=== PATIENT | female | born 1940 | race Caucasian/White ===

== ENCOUNTER → 2017-02-05 | Outpatient (CLI) | payer MEDICARE ==
[~2017-02-05] MED LIST: ALBU8.5H3 INH; ALPR-475 PO; ALPR0.5T6 PO; ALPR1TAB6 PO; AMLO5TAB2 PO; AMOX1TAB64 PO; APIX5TAB PO; ASPI-650 PO; BUDE10.2 INH; CELE200C PO; CIPR500T87 PO; CITA20TA9 PO; CLON0.1T PO; CLON0.2T PO; DIAZ5TAB4 PO; DIGO125T PO; DIGO125T10 PO; DILT120C PO; DILT240C55 PO; DILT360C22 PO; DILT60CA PO; DOCU-186 PO; DOCU-30 PO; DULO20CA45 PO; DULO30CA2 PO; FLUT1DIS3 INH; FURO-92 PO; FURO-93 PO; GABA300C PO; GABA300C10 PO; GABA600T2 PO; ISOS10TA6 PO; ISOS20TA3 PO; ISOS30TA8 PO; LEVO750T6 PO; LISI-170 PO; LISI40TA PO; LOSA25TA5 PO; MELO7.5T5 PO; METF1000 PO; METF10002 PO; METO25TA35 PO; METO50TA4 PO; METO50TA82 PO; METR500T PO; OMEP-110 PO; OMEP20CA9 PO; OXYC-223 PO; OXYC-229 PO; OXYC-302 PO; OXYC15TA60 PO; OXYC20TA2 PO; POLY17PO5 PO; POTA10CA PO; POTA10TA90 PO; POTA20TA6 PO; POTA20TA89 PO; PRAV80TA2 PO; PRED10TA PO; PRED10TA14 PO; PRED5TAB PO; SENN1TAB7 PO; SENN8.6T5 PO; SIMV20TA3 PO; SITA100T PO; SPIR25TA3 PO; TRAM50TA2 PO; VALP250C59 PO; WARF1TAB7 PO; WARF2.5T73 PO; WARF5TAB PO; WARF5TAB7 PO
== END | disposition home or self-care (01) ==
LOC: CFH 14:52
PROVIDERS: ATTEND Specialist
DX: R13.10 Dysphagia, unspecified (principal)
CPT/HCPCS: 74220

== ENCOUNTER 2017-03-19 10:17 | Inpatient (IN) | payer MEDICARE ==
[~2017-03-19] VITALS: Ht 170.2 cm; Wt 68.2 kg
[~2017-03-19 10:17] MED LIST changes: +DILT120C9 PO; +DILT120T3 PO; +POTA10TA12 PO
[2017-03-19] MEDS ORDERED: SODIUM CHLORIDE FLUSH 10ML SYR IVF ONE (10:30)
[2017-03-19] MEDS ORDERED: ASPIRIN 81 MG TABLET CHEW ONE (10:38)
[2017-03-19] MEDS ORDERED: NITROGLYCERIN SINGLE TAB 0.4 MG SL ONE ×3 (10:38→11:09)
[2017-03-19] MEDS ORDERED: DILTIAZEM 5 MG/ML, 5ML ONE (10:45)
[2017-03-19 10:57] LABS: ASPARTATE AMINO TRANSFERASE 16 U/L (15-37); BLOOD UREA NITROGEN 17 mg/dL (7-18)
[2017-03-19] MEDS ORDERED: DILTIAZEM 5 MG/ML, 5ML IVPush ONE (11:00)
[2017-03-19] MEDS ORDERED: ASPIRIN 81 MG TABLET CHEW PO ONE (11:00)
[2017-03-19 11:02] LABS: IS PT STATUS REG ER OR PRE ER? YES
[2017-03-19] MEDS ORDERED: NITROGLYCERIN OINT 2%, 1GM TP ONE ×2 (11:10→11:30)
[2017-03-19] MEDS ORDERED: ONDANSETRON 2MG/ML, 2ML IVP PRN (13:00)
[2017-03-19] MEDS ORDERED: NITROGLYCERIN 0.4 MG BOTTLE (25 TABS) SL PRN ×2 (13:00)
[2017-03-19] MEDS ORDERED: DOCUSATE 100 MG CAPSULE PO PRN (13:00)
[2017-03-19] MEDS ORDERED: LABETALOL 5MG/ML, 20ML IV PRN (13:00)
[2017-03-19] MEDS ORDERED: HYDROcodone/APAP 5/325 TABLET PO PRN (13:00)
[2017-03-19] MEDS ORDERED: SENNOSIDES 8.6 MG TABLET PO PRN (13:00)
[2017-03-19] MEDS ORDERED: HEPARIN 5,000 UNITS/ML, 1ML SQ SCH (13:00)
[2017-03-19] MEDS ORDERED: MORP10CA7 PO (13:30)
[2017-03-19] MEDS ORDERED: hydrALAzine 20 MG/ML, 1ML IV PRN ×3 (13:30→17:30)
[2017-03-19] MEDS ORDERED: OXYC5CAP4 PO (13:31)
[2017-03-19 13:48] LABS: IS PT STATUS REG ER OR PRE ER? NO
[2017-03-19 13:55] VITALS: BP 164/99
[2017-03-19] MEDS ORDERED: SITAGLIPTIN 100MG TABLET PO SCH (14:00)
[2017-03-19 14:45] VITALS: BP 165/115
[2017-03-19] MEDS: APIXABAN 5 MG TABLET PO SCH ×2 (14:45→22:00)
[2017-03-19] MEDS: METOPROLOL TARTRATE 50 MG TABLET PO SCH ×2 (14:45→23:12)
[2017-03-19] MEDS: GABAPENTIN 300 MG CAPSULE PO SCH ×3 (14:46→23:12)
[2017-03-19] MEDS: POTASSIUM CHLORIDE 10 MEQ TABLET.ER PO SCH (14:46)
[2017-03-19] MEDS: DULOXETINE 30 MG CAPSULE.DR PO SCH (14:46)
[2017-03-19] MEDS: DIGOXIN 0.125 MG TABLET PO SCH (14:47)
[2017-03-19] MEDS: OMEPRAZOLE 20 MG CAPSULE.DR PO SCH (14:47)
[2017-03-19] MEDS: LISINOPRIL 20 MG TABLET PO SCH (14:47)
[2017-03-19] MEDS: SPIRONOLACTONE 25 MG TABLET PO SCH (14:47)
[2017-03-19] MEDS: MORPHINE SULFATE 4 MG/ML, 1ML IVPush PRN ×3 (14:59→23:12)
[2017-03-19] MEDS: ISOSORBIDE MONONITRATE ER 30 MG TABLET PO SCH (15:48)
[2017-03-19] MEDS ORDERED: GABAPENTIN 300 MG CAPSULE PO SCH (16:00)
[2017-03-19] MEDS: metFORMIN 500 MG TABLET PO SCH (17:44)
[2017-03-19] MEDS ORDERED: POTASSIUM CHLORIDE 20 MEQ TAB.ER.PRT PO ONE (18:00)
[2017-03-19 18:16] LABS: IS PT STATUS REG ER OR PRE ER? NO
[2017-03-19 19:41] VITALS: BP 115/78
[2017-03-19] MEDS ORDERED: POTASSIUM CHLORIDE 20 MEQ TAB.ER.PRT ONE (23:02)
[2017-03-19] MEDS: INSULIN REGULAR 100 UNITS/ML, 3ML VIAL SQ-INSULIN SCH (23:06)
[2017-03-19] MEDS: MORPHINE SULFATE 10 MG PO SCH (23:21)
[2017-03-19] MEDS: OXYcodone IR 5MG TABLET PO SCH (23:21)
[2017-03-20 02:30] VITALS: BP 149/95
[2017-03-20 05:42] LABS: BLOOD UREA NITROGEN 18 mg/dL (7-18)
[2017-03-20] MEDS ORDERED: ASPIRIN 81 MG TABLET EC PO SCH (06:00)
[2017-03-20] MEDS: INSULIN REGULAR 100 UNITS/ML, 3ML VIAL SQ-INSULIN SCH ×2 (07:00→12:37)
[2017-03-20] MEDS ORDERED: DILT120T3 PO (07:03)
[2017-03-20] MEDS ORDERED: OMEPRAZOLE 20 MG CAPSULE.DR PO SCH (07:30)
[2017-03-20 08:30] VITALS: BP 145/67
[2017-03-20] MEDS: MORPHINE SULFATE 10 MG PO SCH (08:40)
[2017-03-20] MEDS ORDERED: REGADENOSON 0.4 MG/5 ML SYRINGE ONE (08:41)
[2017-03-20] MEDS ORDERED: LISINOPRIL 20 MG TABLET PO SCH (09:00)
[2017-03-20] MEDS ORDERED: DILTIAZEM 120 MG TABLET PO SCH (09:00)
[2017-03-20] MEDS ORDERED: DULOXETINE 30 MG CAPSULE.DR PO SCH (09:00)
[2017-03-20] MEDS ORDERED: SITAGLIPTIN 100MG TABLET PO SCH (09:00)
[2017-03-20] MEDS ORDERED: DIGOXIN 0.125 MG TABLET PO SCH (09:00)
[2017-03-20] MEDS ORDERED: POTASSIUM CHLORIDE 10 MEQ TABLET.ER PO SCH (09:00)
[2017-03-20] MEDS ORDERED: SPIRONOLACTONE 25 MG TABLET PO SCH (09:00)
[2017-03-20] MEDS ORDERED: SITAGLIPTIN 50MG TABLET PO SCH (09:00)
[2017-03-20] MEDS ORDERED: FLUTICASONE/VILANTEROL 100-25MCG/INH INH SCH (09:00)
[2017-03-20] MEDS: OXYcodone IR 5MG TABLET PO SCH (10:19)
[2017-03-20] MEDS: POTASSIUM CHLORIDE 10 MEQ TABLET.ER PO SCH (10:19)
[2017-03-20] MEDS: SPIRONOLACTONE 25 MG TABLET PO SCH (10:20)
[2017-03-20] MEDS: METOPROLOL TARTRATE 50 MG TABLET PO SCH (10:20)
[2017-03-20] MEDS: APIXABAN 5 MG TABLET PO SCH (10:20)
[2017-03-20] MEDS: LISINOPRIL 20 MG TABLET PO SCH (10:20)
[2017-03-20] MEDS: DIGOXIN 0.125 MG TABLET PO SCH (10:20)
[2017-03-20] MEDS: DULOXETINE 30 MG CAPSULE.DR PO SCH (10:22)
[2017-03-20] MEDS: metFORMIN 500 MG TABLET PO SCH (10:22)
[2017-03-20] MEDS: GABAPENTIN 300 MG CAPSULE PO SCH (10:23)
[2017-03-20] MEDS: OMEPRAZOLE 20 MG CAPSULE.DR PO SCH (10:23)
[2017-03-20] MEDS: ISOSORBIDE MONONITRATE ER 30 MG TABLET PO SCH (10:23)
[2017-03-20 14:40] VITALS: BP 144/79
== END 2017-03-20 17:09 | disposition home or self-care (01) | DRG 292 ==
LOC: ED 11:11 → EDIP 11:12 → ED 11:33 → 5SO 13:25
PROVIDERS: ADMIT Family Medicine; ATTEND Family Medicine
DX: I11.0 Hypertensive heart disease with heart failure (principal); F19.20 Other psychoactive substance dependence, uncomplicated; I48.92 Unspecified atrial flutter; J96.10 Chronic respiratory failure, unspecified whether with hypoxia or hypercapnia; R07.89 Other chest pain; I25.110 Atherosclerotic heart disease of native coronary artery with unstable angina pectoris; D63.8 Anemia in other chronic diseases classified elsewhere; E78.00 Pure hypercholesterolemia, unspecified; E78.5 Hyperlipidemia, unspecified; F03.90 Unspecified dementia, unspecified severity, without behavioral disturbance, psychotic disturbance, mood disturbance, and anxiety; F32.9 Major depressive disorder, single episode, unspecified; I48.2 Chronic atrial fibrillation; F41.9 Anxiety disorder, unspecified; G89.29 Other chronic pain; J45.909 Unspecified asthma, uncomplicated; M54.9 Dorsalgia, unspecified; I50.9 Heart failure, unspecified; Z79.01 Long term (current) use of anticoagulants; Z79.4 Long term (current) use of insulin; Z79.82 Long term (current) use of aspirin; Z79.84 Long term (current) use of oral hypoglycemic drugs; Z86.73 Personal history of transient ischemic attack (TIA), and cerebral infarction without residual deficits; Z91.14 Patient's other noncompliance with medication regimen; Z95.0 Presence of cardiac pacemaker; R60.9 Edema, unspecified; E11.65 Type 2 diabetes mellitus with hyperglycemia; F10.10 Alcohol abuse, uncomplicated
CPT/HCPCS: 36415; 71010; 78452; 80048; 80053; 80162; 82962; 83735; 83880; 84100; 84484; 85025; 85610; 93005; 93017; 96374; J1815; J2785; A9502; C9898; J7512

== ENCOUNTER → 2017-04-13 | Outpatient (CLI) | payer MEDICARE ==
[~2017-04-13] MED LIST changes: +MORP10CA7 PO; +OXYC5CAP4 PO
== END | disposition home or self-care (01) ==
LOC: CVU 14:31
PROVIDERS: ATTEND Physician Assistant Medical
DX: I87.2 Venous insufficiency (chronic) (peripheral) (principal)
CPT/HCPCS: 93970

== ENCOUNTER 2017-06-01 20:55 | Emergency (ER) | payer MEDICARE ==
[~2017-06-01] VITALS: Ht 170.2 cm; Wt 69.0 kg
[2017-06-01 22:14] LABS: ASPARTATE AMINO TRANSFERASE 13 U/L (15-37); BLOOD UREA NITROGEN 38 mg/dL (7-18); IS PT STATUS REG ER OR PRE ER? YES
[2017-06-01] MEDS ORDERED: OXYcodone/APAP 5/325MG TABLET ONE (23:58)
[2017-06-02] MEDS ORDERED: OXYcodone/APAP 5/325MG TABLET PO ONE
[2017-06-02 01:35] VITALS: BP 126/65
== END 2017-06-02 01:37 | disposition home or self-care (01) ==
LOC: ED 23:56
DX: M70.72 Other bursitis of hip, left hip (principal); M79.662 Pain in left lower leg; R60.0 Localized edema; I11.0 Hypertensive heart disease with heart failure; I50.9 Heart failure, unspecified; E78.00 Pure hypercholesterolemia, unspecified; E78.5 Hyperlipidemia, unspecified; K21.9 Gastro-esophageal reflux disease without esophagitis; E11.9 Type 2 diabetes mellitus without complications; I25.10 Atherosclerotic heart disease of native coronary artery without angina pectoris; J45.909 Unspecified asthma, uncomplicated; I48.91 Unspecified atrial fibrillation; M19.90 Unspecified osteoarthritis, unspecified site
CPT/HCPCS: 36415; 71010; 80053; 80162; 81001; 84484; 85025; 87086; 93005; 93970; 99285

== ENCOUNTER 2017-06-20 11:28 | Inpatient (IN) | payer MEDICARE ==
[~2017-06-20] VITALS: Ht 172.7 cm; Wt 65.9 kg
[2017-06-20] MEDS ORDERED: DILTIAZEM 125 MG in DEXTROSE 5% 100 ML IV SCH (11:48)
[2017-06-20] MEDS ORDERED: ONDANSETRON 2MG/ML, 2ML ONE (12:00)
[2017-06-20] MEDS ORDERED: PLEASE ENTER HEIGHT AND WEIGHT MC SCH (12:00)
[2017-06-20] MEDS ORDERED: ONDANSETRON 2MG/ML, 2ML IVPush ONE (12:00)
[2017-06-20] MEDS ORDERED: SODIUM CHLORIDE FLUSH 10ML SYR IVF ONE (12:00)
[2017-06-20] MEDS ORDERED: DILTIAZEM 5 MG/ML, 5ML IV ONE (12:00)
[2017-06-20] MEDS ORDERED: MORPHINE SULFATE 4 MG/ML, 1ML ONE ×2 (12:00→13:06)
[2017-06-20] MEDS ORDERED: DILTIAZEM 5 MG/ML, 5ML ONE (12:01)
[2017-06-20 12:11] LABS: HEMATOCRIT 36.8 % (34.6-47.8); HEMOGLOBIN 12.2 g/dL (11.7-16.4); WHITE BLOOD COUNT 4.1 x10^3/uL (3.4-10)
[2017-06-20] MEDS: MORPHINE SULFATE 4 MG/ML, 1ML IVPush PRN ×4 (12:11→13:27)
[2017-06-20 12:20] LABS: ASPARTATE AMINO TRANSFERASE 23 U/L (15-37); BLOOD UREA NITROGEN 40 mg/dL (7-18)
[2017-06-20] MEDS ORDERED: SODIUM CHLORIDE FLUSH 10ML SYR IVF PRN (14:00)
[2017-06-20] MEDS ORDERED: OXYcodone/APAP 7.5/325MG TABLET ONE (14:23)
[2017-06-20] MEDS ORDERED: ONDANSETRON 2MG/ML, 2ML IVPush PRN (14:30)
[2017-06-20] MEDS ORDERED: ONDANSETRON ODT 4 MG PO PRN (14:30)
[2017-06-20] MEDS ORDERED: ACETAMINOPHEN 325 MG TABLET PO PRN (14:30)
[2017-06-20] MEDS ORDERED: LABETALOL 5MG/ML, 20ML IVPush PRN (14:30)
[2017-06-20] MEDS ORDERED: OXYcodone/APAP 7.5/325MG TABLET PO ONE (14:30)
[2017-06-20] MEDS ORDERED: SENNOSIDES 8.6 MG TABLET PO PRN (14:30)
[2017-06-20 15:37] VITALS: BP 130/88
[2017-06-20] MEDS ORDERED: DOCUSATE 100 MG CAPSULE PO PRN (17:30)
[2017-06-20] MEDS ORDERED: DILTIAZEM 125 MG in SODIUM CHLORIDE 0.9% 100 ML IV PRN (17:30)
[2017-06-20] MEDS: GABAPENTIN 300 MG CAPSULE PO SCH ×2 (17:37→20:49)
[2017-06-20 19:38] VITALS: BP 110/68
[2017-06-20] MEDS: metFORMIN 500 MG TABLET PO SCH (20:49)
[2017-06-20] MEDS: APIXABAN 5 MG TABLET PO SCH (20:49)
[2017-06-21 03:31] VITALS: BP 148/87
[2017-06-21 05:12] LABS: HEMATOCRIT 38.8 % (34.6-47.8); HEMOGLOBIN 12.6 g/dL (11.7-16.4)
[2017-06-21 05:37] LABS: BLOOD UREA NITROGEN 29 mg/dL (7-18)
[2017-06-21 08:24] VITALS: BP 130/79
[2017-06-21] MEDS: SPIRONOLACTONE 25 MG TABLET PO SCH (08:29)
[2017-06-21] MEDS: LISINOPRIL 20 MG TABLET PO SCH (08:29)
[2017-06-21] MEDS: DIGOXIN 0.125 MG TABLET PO SCH (08:29)
[2017-06-21] MEDS: GABAPENTIN 300 MG CAPSULE PO SCH ×3 (08:29→21:39)
[2017-06-21] MEDS: APIXABAN 5 MG TABLET PO SCH ×2 (08:29→21:38)
[2017-06-21] MEDS: SITAGLIPTIN 50MG TABLET PO SCH (08:29)
[2017-06-21] MEDS: metFORMIN 500 MG TABLET PO SCH ×2 (08:29→21:39)
[2017-06-21] MEDS: OMEPRAZOLE 20 MG CAPSULE.DR PO SCH (08:30)
[2017-06-21] MEDS: ISOSORBIDE MONONITRATE ER 30 MG TABLET PO SCH (08:30)
[2017-06-21] MEDS: DILTIAZEM 120 MG TABLET PO SCH ×2 (17:18→21:38)
[2017-06-21 17:46] LABS: PATH.CAST-FLAG NOT PRESENT; SPERM-FLAG NOT PRESENT; SRC-FLAG NOT PRESENT; XTAL-FLAG NOT PRESENT; YLC-FLAG NOT PRESENT
[2017-06-21 21:05] VITALS: BP 113/71
[2017-06-22 04:05] VITALS: BP 120/74
[2017-06-22 08:29] VITALS: BP 120/74
[2017-06-22] MEDS: ISOSORBIDE MONONITRATE ER 30 MG TABLET PO SCH (08:37)
[2017-06-22] MEDS: OMEPRAZOLE 20 MG CAPSULE.DR PO SCH (08:37)
[2017-06-22] MEDS: SITAGLIPTIN 50MG TABLET PO SCH (08:37)
[2017-06-22] MEDS: DILTIAZEM 120 MG TABLET PO SCH (08:37)
[2017-06-22] MEDS: LISINOPRIL 20 MG TABLET PO SCH (08:37)
[2017-06-22] MEDS: GABAPENTIN 300 MG CAPSULE PO SCH (08:38)
[2017-06-22] MEDS: APIXABAN 5 MG TABLET PO SCH (08:38)
[2017-06-22] MEDS: metFORMIN 500 MG TABLET PO SCH (08:38)
[2017-06-22] MEDS: SPIRONOLACTONE 25 MG TABLET PO SCH (08:38)
[2017-06-22] MEDS: DIGOXIN 0.125 MG TABLET PO SCH (08:38)
[2017-06-22 12:49] VITALS: BP 103/65
== END 2017-06-22 13:31 | disposition home or self-care (01) | DRG 158 ==
LOC: ED 12:21 → EDIP 13:38 → 5SO 15:22 → DCLOUNGE 06-22 13:17
PROVIDERS: ADMIT Internal Medicine; ATTEND Internal Medicine
DX: M26.69 Other specified disorders of temporomandibular joint (principal); N17.9 Acute kidney failure, unspecified; D68.69 Other thrombophilia; I13.0 Hypertensive heart and chronic kidney disease with heart failure and stage 1 through stage 4 chronic kidney disease, or unspecified chronic kidney disease; I25.110 Atherosclerotic heart disease of native coronary artery with unstable angina pectoris; I38 Endocarditis, valve unspecified; I48.2 Chronic atrial fibrillation; E78.5 Hyperlipidemia, unspecified; E11.22 Type 2 diabetes mellitus with diabetic chronic kidney disease; E78.00 Pure hypercholesterolemia, unspecified; G89.29 Other chronic pain; I25.2 Old myocardial infarction; I50.9 Heart failure, unspecified; J45.909 Unspecified asthma, uncomplicated; K08.89 Other specified disorders of teeth and supporting structures; K21.9 Gastro-esophageal reflux disease without esophagitis; M06.9 Rheumatoid arthritis, unspecified; N18.9 Chronic kidney disease, unspecified; F41.9 Anxiety disorder, unspecified; F32.9 Major depressive disorder, single episode, unspecified; K03.81 Cracked tooth; Z79.01 Long term (current) use of anticoagulants; Z86.73 Personal history of transient ischemic attack (TIA), and cerebral infarction without residual deficits; Z95.0 Presence of cardiac pacemaker
CPT/HCPCS: 36415; 70100; 71010; 80048; 80053; 81001; 83735; 83880; 84100; 84439; 84443; 84484; 85025; 85610; 85730; 93005; 93306; 96365; 96375; 96376; J2405; J7512

== ENCOUNTER 2017-06-28 06:47 | Observation (INO) | payer MEDICARE ==
[~2017-06-28] VITALS: Ht 172.7 cm; Wt 63.9 kg
[2017-06-28] MEDS ORDERED: SODIUM CHLORIDE 0.9% 1,000 ML IV SCH (07:11)
[2017-06-28] MEDS ORDERED: FURO40TA6 PO (07:38)
[2017-06-28] MEDS ORDERED: DULO30CA2 PO (07:38)
[2017-06-28] MEDS ORDERED: APIX5TAB PO (07:38)
[2017-06-28] MEDS ORDERED: OMEP-110 PO (07:38)
[2017-06-28] MEDS ORDERED: ISOS30TA8 PO (07:38)
[2017-06-28] MEDS ORDERED: METO50TA82 PO (07:38)
[2017-06-28] MEDS ORDERED: DILT120C11 PO (07:38)
[2017-06-28] MEDS ORDERED: PRAV80TA2 PO (07:43)
[2017-06-28 07:48] VITALS: BP 101/76
[2017-06-28 07:54] LABS: HEMATOCRIT 37.1 % (34.6-47.8); HEMOGLOBIN 12.2 g/dL (11.7-16.4); WHITE BLOOD COUNT 6.9 x10^3/uL (3.4-10)
[2017-06-28] MEDS ORDERED: MIDAZOLAM 1 MG/ML, 5ML ONE (08:39)
[2017-06-28] MEDS ORDERED: LIDOCAINE 2%, 20ML ONE (08:40)
[2017-06-28] MEDS ORDERED: FENTANYL PF 100 MCG/2ML ONE (08:40)
[2017-06-28 08:48] LABS: ASPARTATE AMINO TRANSFERASE 18 U/L (15-37); BLOOD UREA NITROGEN 39 mg/dL (7-18)
[2017-06-28 09:30] VITALS: BP 110/74
[2017-06-28] MEDS ORDERED: ZOLPIDEM 5MG TABLET PO PRN (09:30)
[2017-06-28] MEDS ORDERED: DOCUSATE 100 MG CAPSULE PO PRN (13:00)
[2017-06-28 13:41] VITALS: BP 99/67
[2017-06-28] MEDS: GABAPENTIN 300 MG CAPSULE PO SCH ×2 (16:00→22:36)
[2017-06-28] MEDS: metFORMIN 500 MG TABLET PO SCH (16:07)
[2017-06-28] MEDS: METOPROLOL TARTRATE 50 MG TABLET PO SCH (18:31)
[2017-06-28 19:40] VITALS: BP 133/86
[2017-06-28] MEDS ORDERED: PRAVASTATIN 40 MG TABLET PO SCH (21:00)
[2017-06-28] MEDS: FUROSEMIDE 40 MG TABLET PO SCH (22:36)
[2017-06-28] MEDS: APIXABAN 5 MG TABLET PO SCH (22:36)
[2017-06-28] MEDS: SPIRONOLACTONE 25 MG TABLET PO SCH (22:36)
[2017-06-28] MEDS: OXYcodone IR 5MG TABLET PO PRN (22:37)
[2017-06-29 00:45] VITALS: BP 111/80
[2017-06-29 06:43] VITALS: BP 122/89
[2017-06-29] MEDS: METOPROLOL TARTRATE 50 MG TABLET PO SCH (06:43)
[2017-06-29] MEDS ORDERED: OMEPRAZOLE 20 MG CAPSULE.DR PO SCH (07:30)
[2017-06-29 07:35] VITALS: BP 112/83
[2017-06-29] MEDS: GABAPENTIN 300 MG CAPSULE PO SCH (07:36)
[2017-06-29] MEDS: SPIRONOLACTONE 25 MG TABLET PO SCH (07:36)
[2017-06-29] MEDS: FUROSEMIDE 40 MG TABLET PO SCH (07:36)
[2017-06-29] MEDS: APIXABAN 5 MG TABLET PO SCH (07:37)
[2017-06-29] MEDS: OXYcodone IR 5MG TABLET PO PRN (07:41)
[2017-06-29] MEDS: metFORMIN 500 MG TABLET PO SCH (07:48)
[2017-06-29] MEDS ORDERED: DULOXETINE 30 MG CAPSULE.DR PO SCH (09:00)
[2017-06-29] MEDS ORDERED: LISINOPRIL 20 MG TABLET PO SCH (09:00)
[2017-06-29] MEDS ORDERED: SITAGLIPTIN 50MG TABLET PO SCH (09:00)
[2017-06-29] MEDS ORDERED: ISOSORBIDE MONONITRATE ER 30 MG TABLET PO SCH (09:00)
[2017-06-29] MEDS ORDERED: POTASSIUM CHLORIDE 10 MEQ TABLET.ER PO SCH (09:00)
[2017-06-29 10:37] VITALS: BP 108/71
[2017-06-29 15:04] VITALS: BP 104/71
== END 2017-06-29 17:38 | disposition home or self-care (01) ==
LOC: CACL 06:47 → ORIP 09:20 → 5SO 12:07
PROVIDERS: ADMIT Internal Medicine Cardiovascular Disease; ATTEND Internal Medicine Cardiovascular Disease
DX: I48.91 Unspecified atrial fibrillation (principal); I63.9 Cerebral infarction, unspecified; I34.0 Nonrheumatic mitral (valve) insufficiency; I44.2 Atrioventricular block, complete; I87.2 Venous insufficiency (chronic) (peripheral); I10 Essential (primary) hypertension; E11.9 Type 2 diabetes mellitus without complications; R06.02 Shortness of breath; J96.10 Chronic respiratory failure, unspecified whether with hypoxia or hypercapnia; Z86.73 Personal history of transient ischemic attack (TIA), and cerebral infarction without residual deficits
CPT/HCPCS: 36415; 72190; 73552; 80053; 85025; 85610; 85730; 93005; 93650; 99156; C1894; C2630; G0378; J2250; J3010; J3490; J7512

== ENCOUNTER 2017-07-31 03:48 | Inpatient (IN) | payer MEDICARE ==
[~2017-07-31] VITALS: Ht 175.3 cm; Wt 68.7 kg
[~2017-07-31 03:48] MED LIST changes: -ALBU8.5H3 INH; +ALBU8.5H8 INH; +DILT120C11 PO; +DOCU-131 PO; -DOCU-30 PO; +FURO40TA6 PO; -OXYC-223 PO; -OXYC-229 PO; +OXYC-306 PO; +OXYC-307 PO; +OXYC5CAP2 PO; -OXYC5CAP4 PO; +POTA10TA6 PO; -POTA10TA90 PO
[2017-07-31] MEDS ORDERED: SODIUM CHLORIDE FLUSH 10ML SYR IVF ONE (04:00)
[2017-07-31] MEDS ORDERED: ONDANSETRON 2MG/ML, 2ML IVPush ONE (04:00)
[2017-07-31] MEDS ORDERED: SODIUM CHLORIDE 0.9% 1,000ML IVBOLUS ONE (04:00)
[2017-07-31 04:30] LABS: HEMATOCRIT 34.9 % (34.6-47.8); HEMOGLOBIN 11.5 g/dL (11.7-16.4); WHITE BLOOD COUNT 7.5 x10^3/uL (3.4-10)
[2017-07-31 04:31] LABS: ASPARTATE AMINO TRANSFERASE 69 U/L (15-37); BLOOD UREA NITROGEN 25 mg/dL (7-18)
[2017-07-31 04:36] LABS: IS PT STATUS REG ER OR PRE ER? YES
[2017-07-31] MEDS ORDERED: ONDANSETRON 2MG/ML, 2ML IVPush PRN ×2 (05:00→08:00)
[2017-07-31] MEDS ORDERED: DIGO125T PO (05:09)
[2017-07-31] MEDS ORDERED: WARF2.5T73 PO (05:09)
[2017-07-31] MEDS ORDERED: DILT60CA PO (05:09)
[2017-07-31] MEDS ORDERED: ONDANSETRON 2MG/ML, 2ML ONE (06:45)
[2017-07-31] MEDS ORDERED: DEXTROSE 4 GM TAB.CHEW PO PRN (08:00)
[2017-07-31] MEDS ORDERED: GLUCAGON 1 MG IM PRN (08:00)
[2017-07-31] MEDS ORDERED: DEXTROSE 50%, 50ML SYRINGE IVPush PRN (08:00)
[2017-07-31] MEDS ORDERED: NITROGLYCERIN 0.4 MG/SPRAY SL PRN (08:00)
[2017-07-31] MEDS ORDERED: LABETALOL 5MG/ML, 20ML IVPush PRN (08:00)
[2017-07-31] MEDS ORDERED: PROMETHAZINE 25 MG/ML, 1ML IM PRN (08:00)
[2017-07-31] MEDS ORDERED: NITROGLYCERIN 0.4 MG BOTTLE (25 TABS) SL PRN (08:00)
[2017-07-31] MEDS ORDERED: ACETAMINOPHEN 325 MG TABLET PO PRN (08:00)
[2017-07-31] MEDS ORDERED: PHARMACY INSTRUCTION MC PRN (08:30)
[2017-07-31] MEDS: SODIUM CHLORIDE FLUSH 10ML SYR IVF SCH ×2 (09:00→21:49)
[2017-07-31] MEDS ORDERED: WARFARIN 5 MG TABLET PO-COUM SCH ×2 (09:00→18:00)
[2017-07-31] MEDS: SPIRONOLACTONE 25 MG TABLET PO SCH ×2 (09:00→14:34)
[2017-07-31] MEDS: GABAPENTIN 300 MG CAPSULE PO SCH ×3 (09:00→21:51)
[2017-07-31] MEDS: metroNIDAZOLE 500 MG TABLET PO SCH ×3 (09:00→22:18)
[2017-07-31] MEDS: FUROSEMIDE 40 MG TABLET PO SCH ×2 (09:00→14:34)
[2017-07-31] MEDS ORDERED: MORPHINE SULFATE 4 MG/ML, 1ML ONE (10:09)
[2017-07-31] MEDS ORDERED: ENOXAPARIN 40 MG/0.4 ML ONE (10:10)
[2017-07-31] MEDS: ENOXAPARIN 40 MG/0.4 ML SQ SCH (10:19)
[2017-07-31] MEDS: MORPHINE SULFATE 4 MG/ML, 1ML IVPush PRN ×3 (10:27→22:18)
[2017-07-31] MEDS: DILTIAZEM 60 MG CAP.ER.12H PO SCH (14:33)
[2017-07-31] MEDS: SITAGLIPTIN 50MG TABLET PO SCH (14:33)
[2017-07-31] MEDS: POTASSIUM CHLORIDE 10 MEQ TABLET.ER PO SCH (14:34)
[2017-07-31] MEDS: DIGOXIN 0.125 MG TABLET PO SCH (14:35)
[2017-07-31] MEDS: INSULIN ASPART 100 UNITS/ML, PEN SQ-INSULIN SCH ×3 (15:38→21:55)
[2017-08-01 00:07] VITALS: BP 108/76
[2017-08-01] MEDS ORDERED: ACETAMINOPHEN 325 MG TABLET PO PRN (00:30)
[2017-08-01] MEDS ORDERED: LABETALOL 5MG/ML, 20ML IVPush PRN (00:30)
[2017-08-01] MEDS ORDERED: ONDANSETRON 2MG/ML, 2ML IVPush PRN (00:30)
[2017-08-01] MEDS ORDERED: NITROGLYCERIN 0.4 MG BOTTLE (25 TABS) SL PRN (00:30)
[2017-08-01] MEDS ORDERED: DEXTROSE 4 GM TAB.CHEW PO PRN (00:30)
[2017-08-01] MEDS ORDERED: DEXTROSE 50%, 50ML SYRINGE IVPush PRN (00:30)
[2017-08-01] MEDS ORDERED: NITROGLYCERIN 0.4 MG/SPRAY SL PRN (00:30)
[2017-08-01] MEDS ORDERED: PROMETHAZINE 25 MG/ML, 1ML IM PRN (00:30)
[2017-08-01] MEDS ORDERED: GLUCAGON 1 MG IM PRN (00:30)
[2017-08-01 05:33] LABS: HEMATOCRIT 33.2 % (34.6-47.8); HEMOGLOBIN 11.1 g/dL (11.7-16.4); WHITE BLOOD COUNT 4.8 x10^3/uL (3.4-10)
[2017-08-01] MEDS: FUROSEMIDE 40 MG TABLET PO SCH (06:24)
[2017-08-01 06:25] LABS: BLOOD UREA NITROGEN 36 mg/dL (7-18)
[2017-08-01] MEDS: SPIRONOLACTONE 25 MG TABLET PO SCH ×2 (06:26→21:41)
[2017-08-01 06:43] LABS: ASPARTATE AMINO TRANSFERASE 32 U/L (15-37)
[2017-08-01] MEDS: INSULIN ASPART 100 UNITS/ML, PEN SQ-INSULIN SCH ×4 (07:00→21:42)
[2017-08-01 07:45] VITALS: BP 107/71
[2017-08-01] MEDS: ENOXAPARIN 40 MG/0.4 ML SQ SCH (08:30)
[2017-08-01] MEDS: POTASSIUM CHLORIDE 10 MEQ TABLET.ER PO SCH (09:00)
[2017-08-01] MEDS: DILTIAZEM 60 MG CAP.ER.12H PO SCH (09:32)
[2017-08-01] MEDS: SITAGLIPTIN 50MG TABLET PO SCH (09:33)
[2017-08-01] MEDS: GABAPENTIN 300 MG CAPSULE PO SCH ×3 (09:34→21:42)
[2017-08-01] MEDS: metroNIDAZOLE 500 MG TABLET PO SCH ×3 (09:35→21:41)
[2017-08-01] MEDS: DIGOXIN 0.125 MG TABLET PO SCH (09:35)
[2017-08-01] MEDS: SODIUM CHLORIDE FLUSH 10ML SYR IVF SCH ×2 (09:40→21:41)
[2017-08-01] MEDS: FUROSEMIDE 40 MG/4 ML IV SCH (15:57)
[2017-08-01 16:00] VITALS: BP 104/75
[2017-08-01] MEDS ORDERED: HYDROcodone/APAP 5/325 TABLET PO ONE (17:30)
[2017-08-01 20:30] VITALS: BP 109/74
[2017-08-02 00:49] VITALS: BP 111/76
[2017-08-02] MEDS ORDERED: HYDROcodone/APAP 5/325 TABLET PO ONE (01:30)
[2017-08-02 05:37] LABS: HEMATOCRIT 31.3 % (34.6-47.8); HEMOGLOBIN 10.4 g/dL (11.7-16.4); WHITE BLOOD COUNT 4.9 x10^3/uL (3.4-10)
[2017-08-02 06:01] LABS: BLOOD UREA NITROGEN 39 mg/dL (7-18)
[2017-08-02] MEDS: INSULIN ASPART 100 UNITS/ML, PEN SQ-INSULIN SCH ×4 (07:00→21:00)
[2017-08-02 08:57] VITALS: BP 120/83
[2017-08-02] MEDS: ENOXAPARIN 40 MG/0.4 ML SQ SCH (09:17)
[2017-08-02] MEDS: FUROSEMIDE 40 MG/4 ML IV SCH (09:17)
[2017-08-02] MEDS: GABAPENTIN 300 MG CAPSULE PO SCH ×3 (09:18→21:38)
[2017-08-02] MEDS: DILTIAZEM 60 MG CAP.ER.12H PO SCH (09:18)
[2017-08-02] MEDS: SODIUM CHLORIDE FLUSH 10ML SYR IVF SCH ×2 (09:19→21:38)
[2017-08-02] MEDS: SPIRONOLACTONE 25 MG TABLET PO SCH ×2 (09:19→21:38)
[2017-08-02] MEDS: DIGOXIN 0.125 MG TABLET PO SCH (09:19)
[2017-08-02] MEDS: metroNIDAZOLE 500 MG TABLET PO SCH ×3 (09:19→21:38)
[2017-08-02] MEDS: POTASSIUM CHLORIDE 10 MEQ TABLET.ER PO SCH (09:20)
[2017-08-02] MEDS: SITAGLIPTIN 50MG TABLET PO SCH (09:20)
[2017-08-02 13:03] VITALS: BP 113/78
[2017-08-02] MEDS: FUROSEMIDE 40 MG TABLET PO SCH (16:14)
[2017-08-02 20:00] VITALS: BP 135/86
[2017-08-03 02:08] VITALS: BP 141/86
[2017-08-03 06:03] LABS: HEMATOCRIT 32.1 % (34.6-47.8); HEMOGLOBIN 10.6 g/dL (11.7-16.4); WHITE BLOOD COUNT 5.8 x10^3/uL (3.4-10)
[2017-08-03 06:24] LABS: BLOOD UREA NITROGEN 31 mg/dL (7-18)
[2017-08-03] MEDS: INSULIN ASPART 100 UNITS/ML, PEN SQ-INSULIN SCH (07:00)
[2017-08-03 08:40] VITALS: BP 118/69
[2017-08-03] MEDS: GABAPENTIN 300 MG CAPSULE PO SCH (08:59)
[2017-08-03] MEDS: metroNIDAZOLE 500 MG TABLET PO SCH (08:59)
[2017-08-03] MEDS: DIGOXIN 0.125 MG TABLET PO SCH (08:59)
[2017-08-03] MEDS: DILTIAZEM 60 MG CAP.ER.12H PO SCH (08:59)
[2017-08-03] MEDS: SPIRONOLACTONE 25 MG TABLET PO SCH (08:59)
[2017-08-03] MEDS ORDERED: SITAGLIPTIN 50MG TABLET PO SCH (09:00)
[2017-08-03] MEDS: SODIUM CHLORIDE FLUSH 10ML SYR IVF SCH (09:00)
[2017-08-03] MEDS: POTASSIUM CHLORIDE 10 MEQ TABLET.ER PO SCH (09:00)
[2017-08-03] MEDS: ENOXAPARIN 40 MG/0.4 ML SQ SCH (09:00)
[2017-08-03] MEDS: FUROSEMIDE 40 MG TABLET PO SCH (09:00)
[2017-08-03] MEDS ORDERED: METR500T PO (10:45)
== END 2017-08-03 14:05 | disposition home health service (06) | DRG 291 ==
LOC: ED 04:59 → EDIP 05:10 → 5SO 12:50
PROVIDERS: ADMIT Internal Medicine; ATTEND Internal Medicine
DX: I13.0 Hypertensive heart and chronic kidney disease with heart failure and stage 1 through stage 4 chronic kidney disease, or unspecified chronic kidney disease (principal); I50.33 Acute on chronic diastolic (congestive) heart failure; A04.7 Enterocolitis due to Clostridium difficile; D68.69 Other thrombophilia; E11.22 Type 2 diabetes mellitus with diabetic chronic kidney disease; I27.2 Other secondary pulmonary hypertension; F11.20 Opioid dependence, uncomplicated; N18.3 Chronic kidney disease, stage 3 (moderate); F01.50 Vascular dementia, unspecified severity, without behavioral disturbance, psychotic disturbance, mood disturbance, and anxiety; I48.2 Chronic atrial fibrillation; I71.2 Thoracic aortic aneurysm, without rupture; F32.9 Major depressive disorder, single episode, unspecified; D63.8 Anemia in other chronic diseases classified elsewhere; E78.00 Pure hypercholesterolemia, unspecified; E78.5 Hyperlipidemia, unspecified; F41.9 Anxiety disorder, unspecified; G89.29 Other chronic pain; I08.1 Rheumatic disorders of both mitral and tricuspid valves; I25.119 Atherosclerotic heart disease of native coronary artery with unspecified angina pectoris; I25.2 Old myocardial infarction; I45.9 Conduction disorder, unspecified; J45.909 Unspecified asthma, uncomplicated; K21.9 Gastro-esophageal reflux disease without esophagitis; M06.9 Rheumatoid arthritis, unspecified; M19.90 Unspecified osteoarthritis, unspecified site; M26.69 Other specified disorders of temporomandibular joint; T38.0X5A Adverse effect of glucocorticoids and synthetic analogues, initial encounter; Z79.01 Long term (current) use of anticoagulants; Z79.52 Long term (current) use of systemic steroids; Z86.73 Personal history of transient ischemic attack (TIA), and cerebral infarction without residual deficits; Z95.0 Presence of cardiac pacemaker
CPT/HCPCS: 36415; 71010; 80048; 80053; 80162; 81001; 82962; 83735; 83880; 84100; 84484; 85025; 85610; 85730; 87086; 89055; 93005; 96374; J1650; J1815; J1940; J2405; J7030; J7512